=== PATIENT | female | born 1945 | race Caucasian/White ===

== ENCOUNTER 2023-07-13 18:20 | Emergency (ER) | payer OTHER ==
[~2023-07-13] VITALS: Ht 157.5 cm; Wt 71.0 kg
[2023-07-13 18:24] VITALS: O2SAT 95
[2023-07-13 20:03] LABS: BASOPHILS % 0.3 % (0.0-2.0); EOSINOPHILS % 0.4 % (0.0-5.0); HEMATOCRIT. 44.8 % (36.0-48.0); LYMPHOCYTES % 12.6 % (20.0-50.0); MEAN CORPUSCULAR HEMOGLOBIN 29.5 pg (28.0-32.0); MEAN CORPUSCULAR HGB CONC 33.6 g/dL (31.0-37.0); MEAN CORPUSCULAR VOLUME 87.9 fL (81.0-99.0); MEAN PLATELET VOLUME 8.3 fl (7.4-10.4); MONOCYTES % 6.3 % (2.0-8.0); NEUTROPHILS % 80.4 % (40.0-76.0); PLATELET 192 x1000/uL (130-400); RED CELL DISTRIBUTION WIDTH 14.3 % (11.6-14.6); WHITE BLOOD COUNT 9.8 x1000/uL (4.5-11.0)
[2023-07-13 20:10] LABS: CHLORIDE 105 mEq/L (98-107); POTASSIUM 3.9 mEq/L (3.5-5.1); SODIUM 140 mEq/L (136-145)
[2023-07-13 20:11] LABS: CARBON DIOXIDE 29 mEq/L (21-32)
[2023-07-13 20:16] LABS: GLUCOSE 106 mg/dL (70-105)
[2023-07-13 20:17] LABS: UREA NITROGEN BLOOD 16 mg/dL (9-23)
[2023-07-13 20:18] LABS: ALANINE AMINOTRANSFERASE 75 IU/L (10-49); ALBUMIN 4.4 g/dL (3.2-4.8); ASPARTATE AMINOTRANSFERASE 156 IU/L (<34)
[2023-07-13 20:19] LABS: BILIRUBIN TOTAL 1.1 mg/dL (0.1-1.0); TROPONIN I HIGH SENSITIVITY < 4 ng/L (3.0-34)
[2023-07-13 21:16] VITALS: BP 154/70; PULSE 72; RESP 16; TEMP 98.1
== END 2023-07-13 21:17 | disposition home or self-care (01) ==
LOC: ER 18:20
DX: K76.89 Other specified diseases of liver (principal); N28.1 Cyst of kidney, acquired; R79.89 Other specified abnormal findings of blood chemistry; Z88.0 Allergy status to penicillin
CPT/HCPCS: 36415; 74176; 80053; 84484; 85025; 93005; 99284